=== PATIENT | male | born 1985 | race Caucasian/White ===

== ENCOUNTER 2019-05-03 14:06 | Inpatient (IN) | payer OTHER ==
--- NOTE | 2019-05-03 15:10 | BHS.RME ---
Substance Use & Tx History - Substance Use History Opiates (Heroin) Substance amount: 1-2 bundles Frequency of use: Daily Substance route: Injection (ex: intravenous or skin popping) Date of Last Use: 05/03/19 Cannabis Substance amount: $10 Frequency of use: Daily Substance route: Smoking Date of Last Use: 05/03/19 Physical/Psych/Mental Status - Behavior General Behavior: Decreased activity - Cooperativeness Cooperativeness: Cooperative - Thinking Thought Processes: Tight Thought content: Future oriented - Physical Health Problems Is patient presently having any pain?: No Does patient presently have any injuries (include location): No Does patient currently have a fever: No Is patient : No COWS - Scale Resting Pulse: 1= [place] 81-100 Sweatin= Chills/Flushing Restless Observation: 0= Sits Still Pupil Size: 0= Normal to Room Light Bone or Joint Aches: 1= Mild Discomfort Runny Nose/ Eye Tearin= None GI Upset > 30mins: 0= None Tremor Observation: 0= None Yawning Observation: 0= None Anxiety or Irritability: 0= None Goose Flesh Skin: 0=Smooth Skin COWS Score: 3
[2019-05-03 15:38] VITALS: BMI 22.8
--- NOTE | 2019-05-03 15:50 | HP ---
COWS - Scale Resting Pulse: 1= [place] 81-100 Sweatin= Chills/Flushing Restless Observation: 0= Sits Still Pupil Size: 0= Normal to Room Light Bone or Joint Aches: 1= Mild Discomfort Runny Nose/ Eye Tearin= None GI Upset > 30mins: 0= None Tremor Observation: 0= None Yawning Observation: 0= None Anxiety or Irritability: 0= None Goose Flesh Skin: 0=Smooth Skin COWS Score: 3 CIWA Score - Admission Criteria OASAS Guidelines: Admission for Medically Managed Detox: Requires at least one of the followin. CIWA greater than 12 2. Seizures within the past 24 hours 3. Delirium tremens within the past 24 hours 4. Hallucinations within the past 24 hours 5. Acute intervention needed for co occurring medical disorder 6. Acute intervention needed for co occurring psychiatric disorder 7. Severe withdrawal that cannot be handled at a lower level of care (continued vomiting, continued diarrhea, abnormal vital signs) requiring intravenous medication and/or fluids 8. Admitting History and Physical - Admission Chief Complaint: Mr. Tejada presents to [facility] stating " I want to get off heroin". He requests a detox admission. History of Present Illness: Mr. Tejada presents to [facility] stating " I want to get off heroin". He requests a detox admission. This is his first detox admission. PMH: Asthma, remote use of an inhaler Surg: none Psych: none Substance use history Heroin: 1-2 bundles daily, IV, first use last year, last use today. OD a few months ago. No narcan kit available Marijuana: $10. a day, first use age 17y, last use today Ecstasy: once per month, 1-2 pills, began in his early 20's, last use 2 days ago Nicotine: 1/2 ppd Crystal meth: denies Legal: no pending issues SOC: lives alone - Smoking History Smoking history: Current every day smoker Have you smoked in the past 12 months: Yes Aproximately how many cigarettes per day: 10 Admission ROS [facility] - HPI Exam Limitations: No Limitations - Ebola screening Have you traveled outside of the country in the last 21 days: No Have you had contact with anyone from an Ebola affected area: No Have you been sick,other than usual withdrawal symptoms: No Do you have a fever: No - Review of Systems Constitutional: Loss of Appetite EENT: reports: Other (left ear, loss of hearing) Respiratory: reports: No Symptoms reported Cardiac: reports: No Symptoms Reported GI: reports: No Symptoms Reported : reports: No Symptoms Reported Musculoskeletal: reports: Back Pain, Other (body aches) Integumentary: reports: No Symptoms Reported Neuro: reports: No Symptoms reported Endocrine: reports: No Symptoms Reported Hematology: reports: No Symptoms Reported Psychiatric: reports: No Sypmtoms Reported Patient History - Patient Medical History Hx Asthma: Yes Hx Chronic Obstructive Pulmonary Disease (COPD): No Hx Cardiac Disorders: No Hx Hypertension: No Hx Seizures: No Hx Diabetes: No Hx Gastrointestinal Disorders: No Hx Genitourinary Disorders: No Hx Sexually Transmitted Disorders: No Hx Renal Disease (ESRD): No Hx Depression: No Hx Suicide Attempt: No Hx Schizophrenia: No - Patient Surgical History Past Surgical History: No - PPD History Previous Implant?: Yes Documented Results: Negative w/o proof Implanted On Prior [facility] Admission?: No - Smoking Cessation Smoking history: Current every day smoker Have you smoked in the past 12 months: Yes Aproximately how many cigarettes per day: 10 Hx Chewing Tobacco Use: No Initiated information on smoking cessation: Yes 'Breaking Loose' booklet given: 05/03/19 - Substances abused Heroin Substance route: Injection Frequency: Daily Amount used: 15-20 bagsa Age of first use: 32 Date of last use: 05/03/19 Marijuana/Hashish Substance route: Smoking Frequency: Daily Amount used: 1-2 joints Age of first use: 17 Date of last use: 05/03/19 Ectasy Substance route: Oral Amount used: 1-2 pills Age of first use: 20 Date of last use: 05/01/19 Admission Physical Exam [facility] - Vital Signs Vital Signs: Vital Signs - 24 hr 05/03/19 15:32 Temperature 98.2 F Pulse Rate 83 Respiratory 18 Rate Blood Pressure 118/65 - Physical General Appearance: Yes: Intoxicated, Thin HEENTM: Yes: Hearing grossly Normal, Normal Voice Respiratory: Yes: Lungs Clear, Normal Breath Sounds Neck: Yes: Within Normal Limits Breast: Yes: Breast Exam Deferred Cardiology: Yes: Regular Rate, S1, S2 Abdominal: Yes: Non Tender, Flat, Soft, Increased Bowel Sounds Genitourinary: Yes: Other (deferred) Back: Yes: Normal Inspection Musculoskeletal: Yes: Within Normal Limits Extremities: Yes: Within Normal Limits Neurological: Yes: Other (sleepy) Integumentary: Yes: Track Moy (clean, tattoos left lateral orbit/2 tear moy) - Diagnostic (1) Opioid abuse with intoxication, uncomplicated Current Visit: Yes Status: Acute (2) Cannabis abuse Current Visit: Yes Status: Chronic (3) MDMA abuse Current Visit: Yes Status: Chronic (4) Nicotine dependence Current Visit: Yes Status: Acute Cleared for Admission [facility] - Detox or Rehab [facility] Level of Care: Medically Managed Breathalyzer - Breathalyzer Breathalyzer: 0 Urine Drug Screen - Test Device Lot number: [id number] Expiration date: 02/03/21 - Control Is test valid?: Yes - Results Drug screen NEGATIVE: No Urine drug screen results: THC-Marijuana, MET-Methamphetamine, AMP-Amphetamines , FEN-Fentanyl, MOP-Opiates, MDMA-Ecstasy Inpatient Rehab Admission - Rehab Decision to Admit Inpatient rehab admission?: No
[2019-05-03] MEDS ORDERED: MELATONIN 5 MG TABLETS PO PRN (15:52)
[2019-05-03] MEDS ORDERED: hydrOXYzine PAMOATE 25 MG CAPSULE (FP) PO PRN (15:52)
[2019-05-03] MEDS ORDERED: MENTHOL/PHENOL 1 EACH UD MM PRN (15:52)
[2019-05-03] MEDS ORDERED: IBUPROFEN 400 MG TABLET (FP) PO PRN (15:52)
[2019-05-03] MEDS ORDERED: MAGNESIUM HYDROX 2400MG/30ML ORAL SUSPENSION 30 ML CUP PO PRN (15:52)
[2019-05-03] MEDS ORDERED: METHOCARBAMOL 500 MG TABLET PO PRN (15:52)
[2019-05-03] MEDS ORDERED: ACETAMINOPHEN 325 MG TABLET (FP) PO PRN ×2 (15:52)
[2019-05-03] MEDS ORDERED: cloNIDine HCL 0.1 MG TABLET PO PRN (15:52)
[2019-05-03] MEDS ORDERED: MAGNESIUM CITRATE 300 ML BOTTLE PO PRN (15:52)
[2019-05-03] MEDS ORDERED: MAG HYDROX/AL HYDROX/SIMETH 30 ML UNIT-DOSE CUP PO PRN (15:52)
[2019-05-03] MEDS ORDERED: BISMUTH SUBSALICYLATE 524 MG/30 ML UD PO PRN (15:52)
[2019-05-03] MEDS ORDERED: NICOTINE 14 MG/24 HOURS TOPICAL PATCH TD SCH (16:00)
[2019-05-03] MEDS ORDERED: METHADONE HCL 10 MG TABLET (FOR DETOX USE ONLY) PO ONE (17:00)
[2019-05-03 18:06] VITALS: BP 128/67; PULSE 86; TEMP 100.4
--- NOTE | 2019-05-03 18:17 | DS ---
[facility] Detox Discharge Summary Admission Date: 05/03/19 Discharge Date: 05/03/19 - History Additional Comments: Patient is leaving against medical advice. He states that he does not want to continue with the detox. Risks and consequences of his action including drug overdose reinforced. Patient verbalized understanding of instructions. He signed the AMA form and left Pertinent Past History: Opioid dependence MDMA dependence Nicotine dependence Cannabis dependence - Physical Exam Results Vital Signs: Vital Signs Temperature 100.4 F H 05/03/19 18:05 Pulse Rate 86 05/03/19 18:05 Respiratory Rate 18 05/03/19 18:05 Blood Pressure 128/67 05/03/19 18:05 O2 Sat by Pulse Oximetry (%) Pertinent Admission Physical Exam Findings: Opioid withdrawal symptom s - Diagnosis (1) Nicotine dependence Status: Acute (2) Opioid abuse with intoxication, uncomplicated Status: Acute (3) Cannabis abuse Status: Chronic (4) MDMA abuse Status: Chronic - AMA Did Patient Leave Against Medical Advice: Yes
[2019-05-03] MEDS ORDERED: THIAMINE HCL 100 MG TABLET (FP) PO SCH (22:00)
[2019-05-04] MEDS ORDERED: METHADONE (DETOX) 20 MG, METHADONE (DETOX) 5 MG PO ONE (10:00)
[2019-05-04] MEDS ORDERED: PRENATAL VITAMINS W/ FOLIC ACID TABLET (FP) PO SCH (10:00)
[2019-05-05] MEDS ORDERED: METHADONE HCL 10 MG TABLET (FOR DETOX USE ONLY) PO ONE (10:00)
[2019-05-06] MEDS ORDERED: METHADONE (DETOX) 10 MG, METHADONE (DETOX) 5 MG PO ONE (10:00)
[2019-05-07] MEDS ORDERED: METHADONE HCL 10 MG TABLET (FOR DETOX USE ONLY) PO ONE (10:00)
[2019-05-08] MEDS ORDERED: METHADONE HCL 5 MG TABLET (FOR DETOX USE ONLY) PO ONE (06:00)
== END 2019-05-03 19:07 | disposition left against medical advice (07) | DRG 770 ==
LOC: YASAS 14:06 → Y6N 15:48
PROVIDERS: ADMIT Allergy & Immunology; ATTEND Allergy & Immunology
PROC: HZ2ZZZZ Detoxification Services for Substance Abuse Treatment (ICD-10-PCS; principal; 2019-05-03)
DX: F11.23 Opioid dependence with withdrawal (principal); F12.20 Cannabis dependence, uncomplicated; F15.10 Other stimulant abuse, uncomplicated; F17.210 Nicotine dependence, cigarettes, uncomplicated; H91.92 Unspecified hearing loss, left ear; J45.909 Unspecified asthma, uncomplicated